=== PATIENT | male | born 1965 | race Caucasian/White ===

== ENCOUNTER → 2017-04-18 | Outpatient (CLI) | payer OTHER ==
--- NOTE | 2017-04-18 09:11 | MR ---
EXAMINATION TYPE: MR cervical spine wo con DATE OF EXAM: 04/18/2017 COMPARISON: NONE HISTORY: Cervicalgia / Radiculopathy, cervical TECHNIQUE: Multiplanar, multisequence images of the cervical spine were acquired. FINDINGS: There is a focal slight reversal of the usual cervical lordosis from C2-C6. Vertebral body heights ar e maintained. Bone marrow signal is within normal limits. Visualized portions of the posterior fossa are unremarkable. Focal areas of T2 hyperintensity are seen at the C4, C5 and C6 vertebral levels wit h cord and volume loss rather than expansion suggesting myelomalacia. C2-C3: There is a small posterior disc osteophyte complex creating mild spinal canal stenosis minimal ly narrowing the ventral subarachnoid space. Neural foramen are patent. C3-C4: There is a large broad-based disc bulge creating moderate spinal canal stenosis as there is im pression upon the anterior cervical cord and effacement of the ventral subarachnoid space with mild n arrowing of the posterior subarachnoid space. This in combination with uncovertebral hypertrophy and facet arthropathy creates mild bilateral neural foraminal narrowing. C4-C5: There is a central disc herniation superimposed upon a broad-based disc bulge. Uncovertebral h ypertrophy and facet arthropathy contribute to moderate left neural foraminal narrowing and mild righ t neural foraminal narrowing. Abnormal central spinal cord signal is favored to represent myelomalaci a. Moderate spinal canal stenosis is present. C5-C6: There is a right paracentral large disc herniation resulting in focal severe neural foraminal narrowing the AP dimension of the spinal canal the right paracentral aspect of 4 mm. This results in abnormal spinal cord signal favored to represent myelomalacia rather than spinal cord edema given the volume loss. Uncovertebral hypertrophy and facet arthropathy results in severe left neural foraminal narrowing and moderate right neural foraminal narrowing. C6-C7: Small central disc herniation is seen resulting in mild spinal canal stenosis and abnormal spi nal cord signal with T2 hyperintensity right paracentrally. Neural foramen are patent. C7-T1: No evidence for degenerative disc disease. No disc bulge/herniation or protrusion. No Canal stenosis. Foramina are patent bilaterally. IMPRESSION: 1. Large right paracentral disc herniation at C5-C6 resulting in focal right paracentral severe spina l canal stenosis and abnormal spinal cord signal are favored to represent myelomalacia rather than co rd edema as there is volume loss. 2. Central disc herniation at C4-C5 resulting in moderate spinal canal stenosis. Abnormal spinal cord signal favors myelomalacia given volume loss. 3. Small central disc herniation at C6-C7 resulting in mild spinal canal stenosis. Abnormal spinal co rd signal again favors myelomalacia given volume loss. 4. Large broad-based disc bulge at C3-C4 creating moderate spinal canal stenosis. 5. Multilevel degenerative disc disease resulting in variable degrees of neural foraminal stenosis as described above. 6. Small posterior disc osteophyte complex at C2-C3 resulting in mild spinal canal stenosis.
== END | disposition home or self-care (01) ==
LOC: RADMRIMAIN 08:07
PROVIDERS: ATTEND Family Medicine
DX: M48.02 Spinal stenosis, cervical region (principal); M50.11 Cervical disc disorder with radiculopathy, high cervical region; M50.30 Other cervical disc degeneration, unspecified cervical region; M25.78 Osteophyte, vertebrae; G95.89 Other specified diseases of spinal cord
CPT/HCPCS: 72141

== ENCOUNTER → 2017-06-25 | Outpatient (CLI) | payer OTHER ==
[2017-06-25 09:53] LABS: HCT 45.7 % (39.0-53.0); MCH 30.7 pg (25.0-35.0); MCV 87.9 fL (80.0-100.0); Mean Platelet Volume 7.8; Platelet Count 241 k/uL (150-450); RDW 12.9 % (11.5-15.5); WBC 7.5 k/uL (3.8-10.6)
[2017-06-25 09:54] LABS: INR 1.1 (<1.2); Partial Thromboplastin Time 24.6 sec (22.0-30.0); Prothrombin Time 10.6 sec (9.0-12.0)
[2017-06-25 10:26] LABS: Anion Gap 10 mmol/L; Appearance,Urine Clear (Clear); Bilirubin,Urine Negative (Negative); Blood Urea Nitrogen 24 mg/dL (9-20); Blood,Urine Negative (Negative); Calcium 9.5 mg/dL (8.4-10.2); Carbon Dioxide 29 mmol/L (22-30); Chloride 104 mmol/L (98-107); Color,Urine Yellow; Glucose 103 mg/dL (74-99); Glucose,Urine (UA) Negative (Negative); Ketones,Urine Negative (Negative); Leukocyte Esterase,Urine Negative (Negative); Nitrite,Urine Negative (Negative); PH, Urine 5.5 (5.0-8.0); Potassium 5.2 mmol/L (3.5-5.1); Protein,Urine Trace (Negative); Sodium 143 mmol/L (137-145); Specific Gravity,Urine 1.028 (1.001-1.035)
[2017-06-25 10:28] LABS: Basophils # (M) 0.08 k/uL (0-0.2); Eosinophils # (M) 0.45 k/uL (0-0.7); Lymphocytes # (M) 1.95 k/uL (1.0-4.8); Monocytes # (M) 1.13 k/uL (0-1.0); Neutrophils % (M) 52 %; Nucleated Red Blood Cells 0 /100 WBC (0-0); Total Cells Counted 100
--- NOTE | 2017-06-25 14:56 | XR ---
EXAMINATION TYPE: XR chest 2V DATE OF EXAM: 06/25/2017 COMPARISON: None HISTORY: 52-year-old male preoperative assessment before cervical spine surgery TECHNIQUE: Frontal and lateral views FINDINGS: The cardiomediastinal silhouette, aorta, and pulmonary vasculature are within normal limits. Lungs an d pleural spaces are clear. IMPRESSION: No acute cardiopulmonary process.
== END | disposition home or self-care (01) ==
LOC: LABPAT 06-22 09:01
PROVIDERS: ATTEND Orthopaedic Surgery Orthopaedic Surgery of the Spine
DX: Z01.818 Encounter for other preprocedural examination (principal); Z01.812 Encounter for preprocedural laboratory examination; M48.02 Spinal stenosis, cervical region
CPT/HCPCS: 71046; 80048; 81003; 85025; 85610; 85730; 86850; 86900; 86901; 87070; 93005

== ENCOUNTER 2017-07-04 10:57 | Inpatient (IN) | payer OTHER ==
[2017-06-24 14:43] VITALS: BMI 36.0
[~2017-07-04 10:57] MED LIST: LIDOCAINE 1% 20 ML VIAL (10MG/ML) FOR IV START INTRADERMA PRN; ONDANSETRON ODT 4 MG TAB PO ONE; ceFAZolin IN SWFI 2 GM/20 ML SYRINGE IVP ONE
[2017-07-04] MEDS: LACTATED RINGERS 1,000 ML IV SCH (11:49)
[2017-07-04] MEDS ORDERED: MIDAZOLAM 2 MG/2 ML VIAL ONE (12:59)
[2017-07-04] MEDS ORDERED: fentaNYL (PF) 50 MCG/ML 2 ML AMP ONE (12:59)
[2017-07-04] MEDS ORDERED: DEXAMETHASONE SOD PHOS (MDV) 100 MG/10 ML VIAL ONE (12:59)
[2017-07-04] MEDS ORDERED: PROPOFOL 10 MG/ML 20 ML VIAL IV ONE (12:59)
[2017-07-04] MEDS ORDERED: MORPHINE SULFATE 10 MG/ML SYRINGE ONE (12:59)
[2017-07-04] MEDS ORDERED: LIDOCAINE 1% INJ 10MG/ML (20 ML MDV) ONE (12:59)
[2017-07-04] MEDS ORDERED: SUCCINYLCHOLINE CHLORIDE 100 MG/5 ML SYR IV ONE (12:59)
[2017-07-04] MEDS ORDERED: BACITRACIN 50,000 UNIT in SODIUM CHLORIDE 0.9% IRRIGATIO 1,000 ML IRRIGATION ONE (13:30)
[2017-07-04] MEDS ORDERED: GELATIN SPONGE,ABSORB (LARGE) 1 EACH SPONGE MISCELLANE ONE (13:45)
[2017-07-04] MEDS ORDERED: THROMBIN (BOVINE) 5,000 UNIT VIAL TOPICAL ONE (13:45)
[2017-07-04] MEDS ORDERED: BUPIVACAINE (PF) 0.5% 30 ML VIAL SQ ONE (13:46)
[2017-07-04] MEDS ORDERED: LACTATED RINGERS 1,000 ML IV ONE ×2 (14:14→16:03)
--- NOTE | 2017-07-04 14:23 | XR ---
EXAMINATION TYPE: XR cervical spine 1V DATE OF EXAM: 07/04/2017 COMPARISON: MRI cervical spine April 18, 2017. HISTORY: Neck pain. TECHNIQUE: Crosstable lateral view of the cervical spine is obtained intraoperatively. FINDINGS: Exam is for surgical planning and not for diagnostic purposes. Metallic pointer is noted ov erlying C6-C7 disc space. IMPRESSION: As above.
[2017-07-04] MEDS ORDERED: BENZOCAINE/MENTHOL LOZENG 1 EACH LOZENGE MUCOUS MEM PRN (16:13)
[2017-07-04] MEDS ORDERED: MORPHINE SULFATE 4 MG/ML SYRINGE IVP PRN ×2 (16:13→16:46)
[2017-07-04] MEDS ORDERED: ONDANSETRON 4 MG/2 ML VIAL IVP PRN (16:18)
[2017-07-04] MEDS ORDERED: DIAZEPAM 5 MG TAB PO PRN (16:18)
[2017-07-04] MEDS ORDERED: TRIAMCINOLONE 0.1% CREAM 80 GM TUBE TOPICAL PRN (16:20)
--- NOTE | 2017-07-04 16:27 | P.OP ---
Date of Procedure: 07/04/17 Preoperative Diagnosis: Cervical myelopathy, cervical myelomalacia, severe cervical stenosis C5 6, cervical stenosis C3 4 C4 5 C6 7, herniated nucleus pulposis C4 5 and C3 4 C5 6 C6 7, upper extremity radiculopathy, myeloradiculopathy, upper extremity weakness, degenerative disc disease Postoperative Diagnosis: Same Anesthesia: GETA Pathology: none sent Condition: stable Disposition: PACU Description of Procedure: BRIEF OPERATIVE NOTE Preoperative Diagnosis: Cervical myelopathy, cervical myelomalacia, severe cervical stenosis C5 6, cervical stenosis C3 4 C4 5 C6 7, herniated nucleus pulposis C3 4 C4 5 C5 6 C6 7, extruded fragments C56, degenerative disc disease , upper extremity radiculopathy, myeloradiculopathy, upper extremity weakness Postoperative Diagnosis: Same Procedure: Anterior cervical decompression with discectomy and fusion C3 4 C4 5 C5 6 and C6 7 Placement of interbody graft C3 4 C4 5 C5 6 and C6 7 Application of anterior cervical plate C3 4 5 6 and 7 Surgeon: Dr. Yan Cofounder: Raymond CORRALES who is present throughout the entire the case persistence during positioning, dissection, exposure, visualization, and all crucial elements of the case as well as closure. Anesthesia: General anesthesia per Dr. An Estimated blood loss: Approximately 300 mL Complications: None apparent Components implanted: [place] anterior cervical plate system with a 80 mm plate and 10 screws measuring 14 mm, Vikos interbody allograft bone graft and 1 mL of DBX bone putty to supplemental bone graft Disposition: To recovery room in good stable condition. OPERATIVE INDICATIONS The patient has had long-standing issues in their neck and upper extremities. He was found have severe changes their cervical spine as well as a large extruded disc herniation at C5 6 with stenosis and herniation at C3 through 4 C4 5 and C6 7. There is evidence of myelomalacia at his spinal cord and he was demonstrating evidence of myelopathy as well. He is having weakness at his upper extremities and severe radiculopathy. The patient has been through conservative treatment. He is not having benefit despite conservative treatment and was having worsening of his symptoms. We discussed the treatment options ranging from conservative to surgical. We discussed various treatment options including surgery, and the patient wishes to proceed with surgery We discussed the risk, patient's alternatives and benefits of surgery including but not limited to, risk of bleeding risk of infection, risk of need for further surgery, risk of decreased, loss of motion, muscle function, malunion nonunion, hardware failure, nerve damage, paralysis, heart attack, and . OPERATIVE SUMMARY After discussing all the risks, patient alternatives and benefits at length, the patient elected to proceed with surgical intervention, signed informed consent, and presented for their procedure. The patient was seen and examined in the preoperative holding area and the surgical site was marked. The patient was given antibiotics and brought to the operating room. The patient was positioned on the operating room table in a supine position being careful to pad any bony prominences and pressure points. The patient was sedated and intubated by anesthesia in standard fashion. Once the airway and C- spine were stabilized the patient's arms were padded and tucked at her side, with her shoulders gently taped. The head was placed in a donut pad with the neck in good neutral alignment and position. We were careful to maintain the patient's cervical spine and good neutral alignment and position throughout. The patient was prepped and draped in a normal standard fashion. An appropriate timeout and keystone protocol performed. We were able to proceed with the surgery. The local wound area was infiltrated with local anesthetic. An incision was made longitudinally on the right approximately 4 cm over the appropriate levels from C3 to C7. Dissection was taken down subcutaneously to the level of the platysma which was split in line with its fibers. Dissection was taken with a carotid approach, with the trachea and esophagus medial and the carotid sheath laterally. We dissected down to the anterior surface of the vertebral bodies. Intraoperative x-ray was taken which showed a marker at the appropriate level of C6 7. With the appropriate level positively confirmed, we were able to proceed with discectomy at the appropriate levels first at C6 7 then moving up to C5 6 and C 45 than C3 4. All of the operative levels were exposed appropriately. There were osteophytes at each level and these were taken down. The patient had all their twitches back, and there was no evidence of recurrent laryngeal issue. The wound was copiously irrigated and suctioned dry as had been done periodically throughout the case. At the appropriate level /levels, starting at C6 [address] cephalad up to C3 4 I established an annulotomy with an 11 blade scalpel. A discectomy was performed with a combination of pituitary rongeurs, curettes, a high-speed bur, and Kerrison rongeurs. At each level there was significant disc protrusion and herniation causing significant stenosis. Particularly at C5 6 there is a very large extruded disc herniation causing severe distortion of the spinal cord with extruded fragment. The posterior longitudinal ligament was taken down as were any posterior osteophytes. I was able to remove any extruded fragments and disc herniation that was causing stenosis and posterior osteophytes were removed as well. This gave good central and bilateral foraminal decompression. There is no evidence of any dural tear or leak. The endplates were prepared with a high-speed bur. With the endplates in good parallel position, I was able to size for the appropriate size interbody graft. The wound was irrigated and suctioned dry the graft was prepared and malleted into position. It had good alignment and position with the anterior surface flush with the anterior surface of the vertebral bodies. This was done similarly the appropriate levels first at C6 7 then at C5 6 and at C4 5 than at C3 4. With the grafts intact, I was able to measure and contour and appropriate sized plate. The plate was positioned at the midline over the appropriate levels from C3 to C7. Screw holes were established with a hand drill and drill guide. Screws were placed in good alignment and position with excellent bony purchase. They were seated under the locking device. The construct was checked and found to be stable. Intraoperative x-ray was taken which showed good alignment and position of the implants at the appropriate levels. There was no evidence of any dural tear or leak. Good hemostasis was maintained. The wound was copiously irrigated and suctioned dry as had been done periodically throughout the case. The platysma was closed with absorbable suture. The subcutaneous tissue was closed. The subcuticular tissue was closed with absorbable suture. The wound was cleaned and dried and dressed appropriately. A soft cervical collar was placed appropriately. The patient was woken up by anesthesia, extubated, transferred back gently to their hospital bed and brought to the recovery room in good stable condition. The patient will be admitted to the hospital for appropriate postoperative care , medical management and monitoring. We will continue to follow them closely about the postoperative course.
[2017-07-04] MEDS: MORPHINE SULFATE 4 MG/ML SYRINGE IV PRN ×4 (16:49→16:59)
[2017-07-04] MEDS: MEPERIDINE 50 MG/ML SYRINGE IVP ONE ×2 (17:05→17:11)
[2017-07-04] MEDS: SODIUM CHLORIDE 0.9% 1,000 ML IV SCH (20:18)
[2017-07-04] MEDS: ceFAZolin IN SWFI 2 GM/20 ML SYRINGE IVP SCH (20:18)
--- NOTE | 2017-07-04 22:54 | XR ---
EXAMINATION TYPE: XR cervical spine 1V DATE OF EXAM: 07/04/2017 COMPARISON: Today HISTORY: Postop TECHNIQUE: Single view FINDINGS: There is a plate with screws fusing anteriorly the cervical spine from C3 to C7. Vertebra h ave normal alignment. There is multilevel disc graft. Posterior elements are intact. IMPRESSION: Multilevel fusion surgery. No complicating process seen.
[2017-07-04] MEDS: HYDROcodone/APAP 5-325MG 1 EACH TAB PO PRN (23:56)
[2017-07-05] MEDS: ceFAZolin IN SWFI 2 GM/20 ML SYRINGE IVP SCH (04:35)
[2017-07-05] MEDS: HYDROcodone/APAP 5-325MG 1 EACH TAB PO PRN ×3 (05:09→13:16)
[2017-07-05] MEDS: LACTATED RINGERS 1,000 ML IV SCH (06:20)
[2017-07-05 07:43] VITALS: BP 127/77; PULSE 88; RESP 16; TEMP 98.5
[2017-07-05] MEDS: SODIUM CHLORIDE 0.9% 1,000 ML IV SCH (07:54)
[2017-07-05] MEDS ORDERED: amLODIPine 5 MG TAB PO SCH (09:00)
[2017-07-05] MEDS ORDERED: SENNOSIDES-DOCUSATE SODIUM 1 EACH TAB PO SCH (09:00)
--- NOTE | 2017-07-05 12:46 | P.DS ---
Providers Date of admission: 07/04/17 10:57 Expected date of discharge: 07/05/17 Attending physician: Cony Yan Primary care physician: Vineet Walton - Discharge Diagnosis(es) (1) Cervical cord myelomalacia Current Visit: Yes Status: Acute (2) Cervical stenosis of spinal canal Current Visit: Yes Status: Acute (3) Degenerative disc disease, cervical Current Visit: Yes Status: Acute (4) Radiculopathy affecting upper extremity Current Visit: Yes Status: Acute (5) Cervical herniated disc Current Visit: Yes Status: Acute (6) Upper extremity weakness Current Visit: Yes Status: Acute (7) Status post cervical spinal fusion Current Visit: Yes Status: Acute (8) Cervical myelopathy Current Visit: Yes Status: Acute Hospital Course: This is a pleasant 52-year-old male who presented with cervical myelopathy, cervical myelomalacia, C3-4, C4-5, and C6-7 cervical stenosis; C5-6 severe cervical canal stenosis, upper extremity radiculopathy, myeloradiculopathy, upper extremity weakness, cervical degenerative disc disease, and herniated nucleus pulposus at C3-4, C4-5, C5-6, and C6-7 who failed outpatient conservative therapy. He was admitted for an anterior cervical decompression and fusion at C3-4, C4-5, C5-6, and C6-7. The patient tolerated the procedure well and did well postoperatively. He states he feels better postsurgically than prior to surgical intervention. He is ready for discharge. His overall pain is currently 6/10. Condition on day of discharge stable. Patient will be discharged home. Patient was cleared preoperatively for surgery by Dr. Walton. Patient currently denies any nausea, vomiting, fever, or chills. Patient is eating and voiding freely without difficulty. Patient may shower Tegaderm dressing intact. Patient may remove Tegaderm dressing in 3 days and shower without a dressing at that time. Patient should keep Steri-Strips intact and allow them to fall off naturally. Patient should refrain from driving until at least after their first follow-up appointment in the office. Patient should avoid excessive neck flexion, extension, rotation, and lateral sidebending; no overhead lifting; no lifting greater than 10 pounds. And is given a prescription for [place] 5 mg/325 mg 1-2 tabs every 6 hours as needed for pain dispense #90 and Flexeril 10 mg 1 tab every 8 hours as needed for muscle spasm dispense #90 at discharge. She should avoid anti-inflammatory medications over the next 6 weeks postoperatively. Physical Exam on day of discharge: Patient is awake, alert, and oriented 3 Vital signs stable Good chest excursion with deep inspiration and expiration Abdomen soft nontender No signs or symptoms of DVT; no calf pain Full range of motion of the cervical spine with adequate flexion, extension, and bilateral rotation Grades 7 8 Tutor strength, thumb strength, interosseous strength, biceps strength, triceps strength, and shoulder strength positive sustained bilaterally Soft cervical collar intact Incision is clean, dry, and intact; no erythema, purulence, or signs of infection Dressing is removed and reapplied with Tegaderm dressing and non-stick Telfa intact Procedures: C3-4, C4-5, C5-6, and C6-7 anterior cervical decompression and fusion Patient Condition at Discharge: Stable Plan - Discharge Summary Discharge Rx Participant: Yes New Discharge Prescriptions: New Cyclobenzaprine [Flexeril] 10 mg PO TID PRN #90 tab PRN Reason: Muscle Spasm Hydrocodone/Acetaminophen [[place] 5-325] 1 - 2 each PO Q6HR PRN #90 tab PRN Reason: Pain No Action amLODIPine [Norvasc] 5 mg PO DAILY Ibuprofen [Motrin] 800 mg PO DAILY PRN PRN Reason: Pain Triamcinolone 0.1% Cream [Kenalog] 1 applic TOPICAL DAILY Discharge Medication List Ibuprofen [Motrin] 800 mg PO DAILY PRN 06/24/17 [History] amLODIPine [Norvasc] 5 mg PO DAILY 06/24/17 [History] Triamcinolone 0.1% Cream [Kenalog] 1 applic TOPICAL DAILY 07/04/17 [History] Cyclobenzaprine [Flexeril] 10 mg PO TID PRN #90 tab 07/05/17 [Rx] Hydrocodone/Acetaminophen [[place] 5-325] 1 - 2 each PO Q6HR PRN #90 tab 07/05/17 [Rx] Follow up Appointment(s)/Referral(s): Cony Yan DO [Doctor of Osteopathic Medicine] - 07/19/17 10:30 am Patient Instructions/Handouts: *Surgery [facility] - ([facility]) Cervical Surgery Discharge Instructions Activity/Diet/Wound Care/Special Instructions: 1. Patient may shower with Tegaderm dressing intact. 2. Patient may remove Tegaderm dressing in 3 days and shower without a dressing at that time. 3. Patient should keep Steri-Strips intact and allow them to fall off naturally. 4. Patient should refrain from driving until at least after their first follow- up appointment in the office. 5. Patient should avoid excessive cervical extension, rotation, sidebending; avoid overhead lifting; no lifting greater than 10 pounds 6. Take medications as prescribed 7. Do not soak in tub. Discharge Disposition: HOME SELF-CARE
== END 2017-07-05 13:25 | disposition home or self-care (01) | DRG 472 ==
LOC: 2ORMAIN 10:57 → 3SUR 16:27 → 5MS5E 17:43
PROVIDERS: ADMIT Orthopaedic Surgery Orthopaedic Surgery of the Spine; ATTEND Orthopaedic Surgery Orthopaedic Surgery of the Spine
PROC: 0RB30ZZ Excision of Cervical Vertebral Disc, Open Approach (ICD-10-PCS; 2017-07-04)
PROC: 4A11X4G Monitoring of Peripheral Nervous Electrical Activity, Intraoperative, External Approach (ICD-10-PCS; 2017-07-04)
PROC: 0RG20K0 Fusion of 2 or more Cervical Vertebral Joints with Nonautologous Tissue Substitute, Anterior Approach, Anterior Column, Open Approach (ICD-10-PCS; principal; 2017-07-04 13:00)
DX: M50.01 Cervical disc disorder with myelopathy, high cervical region (principal); G95.89 Other specified diseases of spinal cord; M48.02 Spinal stenosis, cervical region; R20.8 Other disturbances of skin sensation; M50.11 Cervical disc disorder with radiculopathy, high cervical region; G89.29 Other chronic pain; I10 Essential (primary) hypertension; Z79.899 Other long term (current) drug therapy; Z87.891 Personal history of nicotine dependence; Z80.3 Family history of malignant neoplasm of breast; Z80.42 Family history of malignant neoplasm of prostate; Z80.0 Family history of malignant neoplasm of digestive organs; Z80.1 Family history of malignant neoplasm of trachea, bronchus and lung; Z80.8 Family history of malignant neoplasm of other organs or systems; Z83.3 Family history of diabetes mellitus; Z89.022 Acquired absence of left finger(s)
CPT/HCPCS: 72020; 84132; 86850; 86900; 86901

== ENCOUNTER 2019-01-02 11:04 | Day surgery (SDC) | payer OTHER ==
[2018-12-29 08:32] VITALS: BMI 33.4
[~2019-01-02 11:04] MED LIST changes: -LIDOCAINE 1% 20 ML VIAL (10MG/ML) FOR IV START INTRADERMA PRN; -ONDANSETRON ODT 4 MG TAB PO ONE; +SODIUM CHLORIDE 0.9% 1,000 ML IV SCH; -ceFAZolin IN SWFI 2 GM/20 ML SYRINGE IVP ONE
[2019-01-02 11:42] VITALS: TEMP 98.4
[2019-01-02] MEDS ORDERED: SODIUM CHLORIDE 0.9% 1,000 ML IV ONE ×2 (11:44)
[2019-01-02] MEDS ORDERED: LIDOCAINE 1% INJ 10MG/ML (20 ML MDV) ONE (11:55)
[2019-01-02] MEDS ORDERED: PROPOFOL 10 MG/ML 20 ML VIAL IV ONE (11:55)
--- NOTE | 2019-01-02 12:31 | P.PCN ---
Date of Procedure: 01/02/19 Operative Findings: TRANSESOPHAGEAL ECHOCARDIOGRAM MANAGED CARE MANAGER: MURTAZA HARRIS MD, RPVI INDICATION: The patient is a 53-year-old gentleman with history of paroxysmal atrial fibrillation scheduled today to undergo a cardioversion. ADRYAN is to rule out any intracardiac thrombus. SEDATION: Deep sedation was performed with FIELD NURSE CASE MANAGER COMPLICATION: None PROCEDURE DESCRIPTION: After obtaining an informed consent, the patient was brought to transesophageal echocardiogram room. Pulse oximetry and heart monitors were attached to the patient. The patient throat was sprayed using lidocaine. The patient was turned into left lateral position. After that a bite guard was placed. After an appropriate conscious sedation was initiated, the transesophageal echocar diogram was advanced through a bite guard into the mid esophagus. A 2-D echocardiogram images, color Doppler images, continuous wave images, pulse-wave images, of various cardiac structure were performed. After that the transesophageal echocardiogram probe was advanced into the stomach and fixed to obtain transgastric view was. The probe was brought into the mid esophagus. Inter-atrial septum was interrogated using 2D images, color Doppler images, and then contrast study. After that transesophageal echocardiogram was withdrawn out and upon withdrawing the descending thoracic aorta all the way up to the arch was evaluated. FINDING: The left ventricular dimension and systolic function appeared to be within normal limits. The ejection fraction appears to be in the range of 50%. The right ventricle appeared to be of normal size and function. There is a short appeared to be mildly dilated. The left atrial appendage appeared to be free from any thrombus. The intra-atrial septum appears to be intact. The aortic valve is trileaflet valve without stenosis or regurgitation with a mitral valve seems to be mildly regurgitant. Normal tricuspid valve and pulmonic valves. CONCLUSION: 1. No evidence of intracardiac thrombus. No evidence of left atrial appendage thrombus 2. Intact interatrial septum without any evidence of shunt 3. Normal left ventricular dimension and systolic function 4. Normal cardiac chamber sizes 5. Trileaflet aortic valve without stenosis or regurgitation 6. Normal mitral valve leaflets with mild MR 7. Normal tricuspid valve and pulmonic valve 8. Normal in this of pericardial effusion
--- NOTE | 2019-01-02 12:34 | P.PCN ---
Date of Procedure: 01/02/19 Operative Findings: Cardioversion report Performing physician: Jeremias Alcala M.D., our BVI Procedure performed: Successful cardioversion of atrial fibrillation to normal sinus mechanism Indication: Paroxysmal atrial fibrillation Complication: None Level of sedation: Deep sedation was performed using propofol with RN CASE MANAGEMENT the room Procedure description: After ADRYAN was performed and intracardiac thrombus was ruled out we pursued with a cardioversion. The patient cardioverted from atrial fibrillation to normal sinus mechanism using 100 showed and first attempt. Postprocedure management: Continue oral anticoagulation Continue the current dose of metoprolol Sleep study to be performed Follow-up with the patient
[2019-01-02 13:36] VITALS: RESP 16
[2019-01-02 14:12] VITALS: BP 108/72; PULSE 68
== END 2019-01-02 14:12 | disposition home or self-care (01) ==
LOC: CATHCVL 11:04
PROVIDERS: ATTEND Internal Medicine Interventional Cardiology
DX: I48.0 Paroxysmal atrial fibrillation (principal); I34.0 Nonrheumatic mitral (valve) insufficiency; I10 Essential (primary) hypertension; K21.9 Gastro-esophageal reflux disease without esophagitis; Z87.891 Personal history of nicotine dependence; Z79.01 Long term (current) use of anticoagulants; Z79.899 Other long term (current) drug therapy
CPT/HCPCS: 93312; 93320; 93325; 92960; J2001; J2704

== ENCOUNTER → 2019-03-13 | Outpatient (CLI) | payer OTHER ==
--- NOTE | 2019-03-13 21:25 | CONS ---
CONSULTATION REASON FOR CONSULTATION: Sleep apnea. This is a 54-year-old male patient, recently diagnosed and treated for obstructive sleep apnea. Underwent cardioversion, back to normal sinus rhythm. As part of investigation sleep apnea evaluation was requested by Cardiology. He snores. He quits breathing. He is a bit tired and sleepy yet not excessive. His Demotte score is at 8. He wakes up with a dry mouth. He has broken sleep, he has to wake up every 2 hours for urination. He carries a bottle of water next to his bedside to keep himself hydrated due to his dry mouth. Denies waking up choking or gasping for air. No restlessness in the lower extremities. He goes to bed around 10 p.m., wakes up at 6 a.m. in the morning. Averaging about 7 hours of sleep. PAST MEDICAL HISTORY: Atrial fibrillation as mentioned. PAST SURGICAL HISTORY: Includes cardioversion and cervical spine surgery with laminectomy and fusion at level of L2 through L5. SOCIAL HISTORY: Patient is an ex-smoker, quit 8 years ago. He is an ex-drinker, quit 23 years ago. No history of substance abuse. FAMILY HISTORY: Negative for sleep apnea. MEDICATION: Includes: 1. Metoprolol tartrate 50 mg twice a day. 2. Eliquis 5 mg twice a day. REVIEW OF SYSTEMS: Fourteen-point review of system was done. Positive findings are mentioned above in the history of present illness. No history of any motor vehicle accident because of feeling drowsy or sleepy. He prefers to sleep on his back. Watches TV in the bedroom environment. No naps during the day. 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 Lives in [place]. He has a [address] back and forth. PHYSICAL EXAMINATION: BP is 122/81, pulse 72, respirations 14, temperature 97.7. Saturation 97% on room air. Height is 5 feet 8 inches, weight 127. Neck size is 18 inches. Demotte score of 8. BMI 33.8. GENERAL APPEARANCE: Calm and comfortable. Head is atraumatic, normocephalic. NECK: Supple. Mallampati class IV. There is no goiter or neck mass. LUNGS: Clear to auscultation. HEART: Heart sounds are regular rate and rhythm. Normal S1, S2. No S3. No murmurs. ABDOMEN: Soft, nontender. No organomegaly. EXTREMITIES: No edema. No cyanosis or clubbing. NEUROLOGIC: He is awake, alert, there are no focal neurological deficits. PSYCHIATRIC: Negative for anxiety or depression. SKIN: Negative for any wounds or ulceration. IMPRESSION: 1. Suspected obstructive sleep apnea. Based on snoring, sleep fragmentation along with fatigue and mild degree of hypersomnia and Demotte score of 8. 2. Paroxysmal atrial fibrillation post cardioversion. Rhythm is sinus. 3. Obesity, BMI of 33.8. PLAN: 1. Home sleep study to screen the patient for sleep breathing disorder that could potentially contribute to atrial fibrillation. 2. Encourage weight loss. 3. Implement sleep hygiene measures. We will continue to follow. MMODL / IJN: [id number] /
== END ==
LOC: SLEEP 16:23
PROVIDERS: ATTEND Internal Medicine Critical Care Medicine
DX: G47.10 Hypersomnia, unspecified (principal); I48.0 Paroxysmal atrial fibrillation; E66.9 Obesity, unspecified; Z68.33 Body mass index [BMI] 33.0-33.9, adult; Z98.890 Other specified postprocedural states; Z79.899 Other long term (current) drug therapy; Z79.01 Long term (current) use of anticoagulants; Z87.891 Personal history of nicotine dependence
CPT/HCPCS: 99211